=== PATIENT | female | born 1945 | race Caucasian/White ===

== ENCOUNTER → 2024-01-24 | Outpatient (CLI) | payer OTHER | END | disposition home or self-care (01) | LOC: RAH 16:28 | PROVIDERS: ATTEND Internal Medicine | DX: Z01.818 Encounter for other preprocedural examination (principal); I70.0 Atherosclerosis of aorta | CPT/HCPCS: 71045 ==

== ENCOUNTER 2024-02-08 05:31 | Observation (INO) | payer OTHER ==
[2024-02-02 13:23] LABS: BASOPHILS # (AUTO) 0.04 K/uL (0.00-0.20); BASOPHILS % (AUTO) 0.6 % (0.0-5.0); EOSINOPHILS # (AUTO) 0.08 K/uL (0.00-0.70); EOSINOPHILS % (AUTO) 1.2 % (0.0-8.0); HEMATOCRIT 40.6 % (36-48); IMMATURE GRANULOCYTE ABSOLUTE 0.01 K/uL (0-1); LYMPHOCYTES % (AUTO) 31.5 % (21.0-51.0); MEAN CORPUSCULAR HGB CONC 33.7 g/dL (32.0-36.0); MONOCYTES # (AUTO) 0.6 K/uL (0.1-1.0); MONOCYTES % (AUTO) 9.2 % (3.0-13.0); NEUTROPHILS # (AUTO) 3.7 K/uL (1.8-7.7); NEUTROPHILS % (AUTO) 57.3 % (40.0-77.0); PLATELET COUNT (AUTO) 226 K/uL (130-400); RED BLOOD CELL COUNT(AUTO) 4.56 MIL/uL (4.00-5.50); RED CELL DISTRIBUTION WIDTH 13.8 % (11.0-15.5); WHITE BLOOD COUNT (AUTO) 6.4 K/uL (4.8-10.8)
[2024-02-02 13:28] LABS: APPEARANCE,URINE CLEAR (CLEAR); BILIRUBIN,URINE NEGATIVE (NEGATIVE); COLOR,URINE YELLOW (YELLOW); GLUCOSE, URINE (UA) NEGATIVE (NEGATIVE); KETONES,URINE NEGATIVE (NEGATIVE); LEUKOCYTE ESTERASE ,URINE 500 Leu/uL (NEGATIVE); NITRATE,URINE NEGATIVE (NEGATIVE); OCCULT BLOOD,URINE NEGATIVE (NEGATIVE); PH,URINE 5.5 (5.0-8.0); PROTEIN,URINE NEGATIVE (NEGATIVE); UROBILINOGEN,URINE 0.2 mg/dL (0.2-1.0)
[2024-02-02 13:41] VITALS: BP 154/87; PULSE 75; RESP 20
[2024-02-02 13:53] LABS: ADD UA MICROSCOPIC YES
[2024-02-02 14:12] LABS: BACTERIA,URINE RARE /HPF (None Seen); MUCUS,URINE RARE LPF (None Seen); SQUAMOUS EPITHELIAL CELL,UR FEW /HPF (0-2); TRANSITIONAL EPI CELLS,URINE RARE /HPF (None Seen)
[2024-02-08] VITALS (29 sets, daily range): BP systolic 109–155; BP diastolic 55–90; PULSE 58–80; RESP 14–18; O2SAT 96
[~2024-02-08] VITALS: Ht 165.1 cm; Wt 106.1 kg
[~2024-02-08 05:31] MED LIST: AMLO-257 PO; ATOR20TA65 PO; ESCI-8 PO; FOLIC ACID PO; LOSA1TAB37 PO; MULT-1258 PO; VITAMIN B12 PO
[2024-02-08] MEDS ORDERED: ROPIVACAINE 0.5% 5MG/ML 30ML ONE ×2 (06:47→06:53)
[2024-02-08] MEDS ORDERED: KETAMINE 50MG/ML SYRINGE 50 MG/ML DISP.SYRIN ONE (06:48)
[2024-02-08] MEDS ORDERED: LIDOCAINE PF 100MG/5ML (2%) SYRINGE 5ML ONE (06:52)
[2024-02-08] MEDS ORDERED: TRANEXAMIC ACID 1000MG/10ML ONE (06:53)
[2024-02-08] MEDS ORDERED: KETOROLAC 30MG VIAL (30MG/ML) ONE (06:53)
[2024-02-08] MEDS ORDERED: ROCURONIUM BROMIDE 10MG/1ML 5ML VL ONE (06:53)
[2024-02-08] MEDS ORDERED: PROPOFOL 10 MG/ML 20ML VIAL IV ONE (06:53)
[2024-02-08] MEDS ORDERED: FENTANYL CITRATE PF 50 MCG/1 ML 2ML VIAL ONE (06:54)
[2024-02-08] MEDS: CEFAZOLIN SODIUM 2 GM VIAL IVPB ONE (07:11)
[2024-02-08] MEDS ORDERED: DEXAMETHASONE SOD PHOSPHATE 10MG/ML 1ML VIAL ONE (07:18)
[2024-02-08] MEDS ORDERED: ONDANSETRON 4MG INJ ONE (07:18)
[2024-02-08] MEDS: CLINDAMYCIN IVPB 900MG/50ML 50 ML IV ONE (07:32)
[2024-02-08] MEDS: LACTATED RINGERS 1000ML 1,000 ML IV ONE (07:32)
[2024-02-08] MEDS ORDERED: GLYCOPYRROLATE 0.2 MG/ML 5 ML VIAL ONE (07:41)
[2024-02-08] MEDS ORDERED: NEOSTIGMINE METHYLSULFATE 1MG/ML IV ONE (07:41)
[2024-02-08] MEDS ORDERED: CEFAZOLIN SODIUM 1 GM VIAL ONE (07:44)
[2024-02-08] MEDS ORDERED: POTASSIUM CHLORIDE 10% ELIXIR 20 MEQ/15 ML UDCUP PO PRN (10:00)
[2024-02-08] MEDS ORDERED: FERROUS FUMARATE 324 MG TABLET PO PRN (10:00)
[2024-02-08] MEDS ORDERED: CYCLOBENZAPRINE HCL 10 MG TABLET PO PRN (10:00)
[2024-02-08] MEDS ORDERED: KCL 20 MEQ ERTAB PO PRN (10:00)
[2024-02-08] MEDS ORDERED: ONDANSETRON 4MG INJ IVP PRN (10:00)
[2024-02-08] MEDS ORDERED: POTASSIUM CHLORIDE 20MEQ/100ML 100 ML IV PRN (10:00)
[2024-02-08] MEDS: MEPERIDINE-PF 25 MG/ML SYG ONE (10:28)
[2024-02-08] MEDS: ONDANSETRON 4MG INJ ONE (10:28)
[2024-02-08] MEDS ORDERED: PHARMACY COMMUNICATION MISC SCH (10:30)
[2024-02-08] MEDS: KETOROLAC 15MG/ML VIAL (15MG/ML) ONE (10:41)
[2024-02-08] MEDS: KETOROLAC 15MG/ML VIAL (15MG/ML) IV SCH (10:41)
[2024-02-08] MEDS: HYDROCODONE/ACETAMINOPHEN 5/325 MG TAB ONE (14:19)
[2024-02-08] MEDS: CLINDAMYCIN IVPB 900MG/50ML 50 ML IV SCH (16:37)
[2024-02-08] MEDS: TRAMADOL HCL 50 MG TABLET PO PRN (16:37)
[2024-02-08] MEDS: GABAPENTIN 100 MG CAPSULE PO SCH (16:37)
[2024-02-08] MEDS: 0.9%NACL 1000ML 1,000 ML IV SCH (19:57)
[2024-02-08] MEDS: ACETAMINOPHEN 1,000 MG/100 ML VIAL IV ONE (19:57)
[2024-02-08] MEDS: FAMOTIDINE 20MG VIAL IV ONE (19:57)
[2024-02-08] MEDS ORDERED: CELECOXIB 200 MG CAP PO SCH (21:00)
[2024-02-08] MEDS: ATORVASTATIN 20 MG TABLET PO SCH (21:04)
[2024-02-08] MEDS: DOCUSATE SODIUM 100 MG CAP PO SCH (21:04)
[2024-02-09] VITALS (8 sets, daily range): BP systolic 107–134; BP diastolic 56–68; PULSE 63–70; RESP 16–20; O2SAT 99
[2024-02-09 05:52] LABS: HEMATOCRIT 31.9 % (36-48); MEAN CORPUSCULAR HEMOGLOBIN 30.1 pg (27.0-33.0); MEAN CORPUSCULAR HGB CONC 33.2 g/dL (32.0-36.0); MEAN CORPUSCULAR VOLUME 90.6 fL (79-99); RED BLOOD CELL COUNT(AUTO) 3.52 MIL/uL (4.00-5.50); RED CELL DISTRIBUTION WIDTH 13.6 % (11.0-15.5); WHITE BLOOD COUNT (AUTO) 9.7 K/uL (4.8-10.8)
[2024-02-09 06:07] LABS: CREATININE 0.9 mg/dL (0.5-1.0)
[2024-02-09] MEDS: CALCIUM CARB 500MG PO PRN (06:28)
[2024-02-09] MEDS: HYDROCODONE/ACETAMINOPHEN 5/325 MG TAB PO PRN (08:47)
[2024-02-09] MEDS ORDERED: LOSARTAN/HYDROCHLOROTHIAZIDE 50-12.5MG TABLET PO SCH (09:00)
[2024-02-09] MEDS: ASPIRIN 325MG EC TAB PO SCH (09:58)
[2024-02-09] MEDS: [UNRECOGNIZED DRUG - OTHER] PO SCH (09:59)
[2024-02-09] MEDS: LYCOPENE PO SCH (09:59)
[2024-02-09] MEDS: MULTIVITS MIN PO SCH (09:59)
[2024-02-09] MEDS: (Escitalopram Oxalate 10 MG) PO SCH (09:59)
[2024-02-09] MEDS: AMLODIPINE 5 MG TAB PO SCH (09:59)
[2024-02-09] MEDS: LUT PO SCH (09:59)
[2024-02-09] MEDS: POLYETHYLENE GLYCOL 3350 17 GM POWD.PACK PO SCH (09:59)
[2024-02-09] MEDS: LOSARTAN/HYDROCHLOROTHIAZIDE 50-12.5MG TABLET PO SCH (09:59)
[2024-02-09] MEDS: KETOROLAC 15MG/ML VIAL (15MG/ML) IV PRN (10:04)
[2024-02-10 03:49] VITALS: BP 128/61; PULSE 75; RESP 20
[2024-02-10 07:21] VITALS: BP 119/57; PULSE 86; RESP 19
[2024-02-10] MEDS: VITAMIN B12 1000 MCG PO SCH (09:00)
[2024-02-10] MEDS: FOLIC ACID 800 MCG PO SCH (09:00)
[2024-02-10 09:30] VITALS: O2SAT 99
[2024-02-10 11:06] VITALS: BP 127/58; PULSE 80; RESP 18
[2024-02-10] MEDS ORDERED: HYDR-4060 PO (11:13)
[2024-02-10] MEDS ORDERED: DOCU-116 PO (11:13)
[2024-02-10] MEDS ORDERED: ASPI-891 PO (11:13)
[2024-02-10] MEDS ORDERED: CYCL-309 PO (11:13)
[2024-02-11] MEDS ORDERED: BISACODYL 10 MG SUPP.RECT RC PRN (10:00)
== END 2024-02-10 11:20 | disposition home or self-care (01) ==
LOC: DAH 05:31 → DAHIP 05:32 → 4CH 14:45
PROVIDERS: ADMIT Student in an Organized Health Care Education/Training Program; ATTEND Student in an Organized Health Care Education/Training Program
DX: M17.11 Unilateral primary osteoarthritis, right knee (principal); G89.18 Other acute postprocedural pain; D62 Acute posthemorrhagic anemia; E78.5 Hyperlipidemia, unspecified; F32.A Depression, unspecified; I12.9 Hypertensive chronic kidney disease with stage 1 through stage 4 chronic kidney disease, or unspecified chronic kidney disease; N18.2 Chronic kidney disease, stage 2 (mild); I73.9 Peripheral vascular disease, unspecified; E78.00 Pure hypercholesterolemia, unspecified; Z86.73 Personal history of transient ischemic attack (TIA), and cerebral infarction without residual deficits; Z88.5 Allergy status to narcotic agent; Z88.0 Allergy status to penicillin; Z88.2 Allergy status to sulfonamides; Z86.2 Personal history of diseases of the blood and blood-forming organs and certain disorders involving the immune mechanism; Z79.899 Other long term (current) drug therapy
CPT/HCPCS: 85025; 87088; 84134; 86140; 81001; 36415 ×2; 93005; 87641; 27447; 96376 ×3; 96365; 96366 ×2; 96375; 64447; 73560; 97161; 97116 ×4; 97530 ×4; 80048; 85027; G0378 ×41; A4663; A4215 ×2; J7120; J3490 ×8; J3010; J0690 ×2; J1100; J2001; J2704; J2405 ×2; J1885 ×8; J2710; J2175; J2795 ×3; G0168; C1776 ×2; A4649 ×2; C1713; A6255; A4223; A4222; A4221